=== PATIENT | male | born 1970 | race Caucasian/White ===

== ENCOUNTER → 2025-03-09 06:55 | Outpatient (REF) | payer OTHER, SELFPAY | LOC: REG 06:55 | PROVIDERS: ATTENDING PHYSICIAN Pediatrics | DX: Z02.89 Encounter for other administrative examinations (principal); Z11.1 Encounter for screening for respiratory tuberculosis | CPT/HCPCS: 36415; 86480 ==

== ENCOUNTER → 2025-03-11 12:41 | Outpatient (REF) | payer SELFPAY | LOC: HWRAD 12:41 | PROVIDERS: ATTENDING PHYSICIAN Internal Medicine Cardiovascular Disease; FAMILY PHYSICIAN Physician Assistant Medical | DX: E78.5 Hyperlipidemia, unspecified (principal) | CPT/HCPCS: 75571 ==